=== PATIENT | female | born 1930 | race Caucasian/White ===

== ENCOUNTER 2017-04-23 12:00 | Inpatient (IN) | payer OTHER ==
[~2017-04-23] VITALS: Ht 160 cm; Wt 66.8 kg
[2017-04-23 13:29] LABS: BASOPHIL COUNT 0.1 K/uL (0-0.1); EOSINOPHIL (%) 0 % (0-5); HEMATOCRIT 37.2 % (36.0-46.0); IMMATURE GRANULOCYTE (%) 3.5 % (0.0-0.7); INSTRUMENT ABS NEUTROPHIL CT 23.3 K/uL; LYMPHOCYTE COUNT 1.1 K/uL (1.0-2.8); MCHC 33.3 G/DL (30.0-36.0); MCV 96.1 FL (83-99); MEAN PLAT.VOLUME 8.8 uM^3 (9.5-12.4); MONOCYTE (%) 10.9 % (3-12); MONOCYTE COUNT 3.1 K/uL (0-0.8); NEUTROPHIL (%) 81.6 % (45-76); NEUTROPHIL COUNT 23.3 K/uL (1.8-6.4); PLATELET COUNT 229 K/uL (156-360); RBC DIS.WIDTH-CV 13.4 % (11.8-14.6); RBC DIS.WIDTH-SD 47.2 % (39-53); RED BLOOD COUNT 3.87 M/uL (3.80-5.20); WHITE BLOOD COUNT 28.6 K/uL (4.1-10.2)
[2017-04-23 13:36] LABS: CHLORIDE 99 mEq/L (99-109); POTASSIUM 4.3 mEq/L (3.7-5.4); SODIUM 133 mEq/L (136-147)
[2017-04-23 13:37] LABS: GLUCOSE 106 mg/dL (70-99)
[2017-04-23 13:39] LABS: ANION GAP 9 MEQ/L (2-14)
[2017-04-23 13:41] LABS: GFR ESTIMATE (CALCULATED) > 59 mL/min/
[2017-04-23 13:42] LABS: UREA NITROGEN (BUN) 20 mg/dL (9-23)
[2017-04-23 13:47] LABS: TROP-I INTERPRETATION NEGATIVE; TROPONIN-I < 0.01 ng/mL (0.0-0.30)
[2017-04-23 14:49] LABS: ADD MIUA? YES; BILIRUBIN NEGATIVE; BLOOD SMALL; COLOR YELLOW ((YELLOW)); GLUCOSE (STRIP) 150; KETONES 5; LEUKOCYTES LARGE; NITRITE NEGATIVE; PROTEIN (STRIP) 30; SPECIFIC GRAVITY 1.018 (1.000-1.030)
[2017-04-23 15:00] LABS: BACTERIA RARE /HPF; EPITHELIAL CELLS RARE /HPF; MUCUS TRACE /LPF; RED BLOOD CELLS 0-5 /HPF (0-5); WHITE BLOOD CELLS 40-50 /HPF (0-5)
[2017-04-23] MEDS ORDERED: LISINOPRIL10 MG PO (15:49)
[2017-04-23] MEDS ORDERED: PRAVACHOL10 MG PO (15:50)
[2017-04-23] MEDS ORDERED: METFORMIN HCL500 MG PO (15:50)
[2017-04-23] MEDS ORDERED: ZINC50 M1 PO (15:51)
[2017-04-23] MEDS ORDERED: ECHINACEA400 MG PO (15:51)
[2017-04-23] MEDS ORDERED: CYANOCOBALAM1000 MCG PO (15:52)
[2017-04-23] MEDS ORDERED: ASCORBIC ACID250 MG PO (15:52)
[2017-04-23] MEDS ORDERED: GLUCOSAMINE HC500 MG PO (15:52)
[2017-04-23] MEDS ORDERED: MUCINEX D ER T1 EACH PO (15:53)
[2017-04-23] MEDS ORDERED: ASPIR-LOW81 MG PO (15:53)
[2017-04-23] MEDS ORDERED: CALCIUM600 M1 PO (15:55)
[2017-04-23 20:21] VITALS: BP 127/58
[2017-04-24 00:26] VITALS: BP 121/52
[2017-04-24 04:17] VITALS: BP 126/64
[2017-04-24 07:17] LABS: BASOPHIL COUNT 0.1 K/uL (0-0.1); EOSINOPHIL (%) 0.3 % (0-5); EOSINOPHIL COUNT 0.1 K/uL (0-0.3); HEMATOCRIT 34.4 % (36.0-46.0); IMMATURE GRANULOCYTE (%) 1.4 % (0.0-0.7); IMMATURE GRANULOCYTE COUNT 0.3 K/uL; INSTRUMENT ABS NEUTROPHIL CT 16.6 K/uL; LYMPHOCYTE COUNT 1.3 K/uL (1.0-2.8); MCH 32.5 PG (29.0-34.0); MCHC 33.7 G/DL (30.0-36.0); MCV 96.4 FL (83-99); MEAN PLAT.VOLUME 9.1 uM^3 (9.5-12.4); MONOCYTE (%) 8.2 % (3-12); MONOCYTE COUNT 1.6 K/uL (0-0.8); NEUTROPHIL (%) 83.3 % (45-76); NEUTROPHIL COUNT 16.6 K/uL (1.8-6.4); PLATELET COUNT 239 K/uL (156-360); RBC DIS.WIDTH-CV 13.2 % (11.8-14.6); RBC DIS.WIDTH-SD 47.2 % (39-53); RED BLOOD COUNT 3.57 M/uL (3.80-5.20); WHITE BLOOD COUNT 19.9 K/uL (4.1-10.2)
[2017-04-24 07:38] LABS: ANION GAP 8 MEQ/L (2-14); CHLORIDE 103 MEQ/L (99-109); GFR ESTIMATE (CALCULATED) > 59 mL/min/; GLUCOSE 86 mg/dL (70-99); POTASSIUM 3.9 MEQ/L (3.7-5.4); SAMPLE HEMOLYSIS CHECK 0; SAMPLE ICTERIC CHECK 0; SAMPLE LIPEMIA CHECK 0; SODIUM 138 MEQ/L (136-147); UREA NITROGEN (BUN) 14 mg/dL (9-23)
[2017-04-24 08:07] VITALS: BP 141/65
[2017-04-24 15:37] VITALS: BP 142/72
[2017-04-25] VITALS: BP 159/74
[2017-04-25 04:19] VITALS: BP 145/67
[2017-04-25 07:31] LABS: HEMATOCRIT 35.2 % (36.0-46.0); MCH 31.3 PG (29.0-34.0); MCHC 32.7 G/DL (30.0-36.0); MCV 95.9 FL (83-99); MEAN PLAT.VOLUME 8.5 uM^3 (9.5-12.4); PLATELET COUNT 287 K/uL (156-360); RBC DIS.WIDTH-CV 13.2 % (11.8-14.6); RBC DIS.WIDTH-SD 47.2 % (39-53); RED BLOOD COUNT 3.67 M/uL (3.80-5.20); WHITE BLOOD COUNT 12.3 K/uL (4.1-10.2)
[2017-04-25 07:37] VITALS: BP 153/72
[2017-04-25 08:10] LABS: ANION GAP 7 MEQ/L (2-14); CHLORIDE 103 MEQ/L (99-109); GFR ESTIMATE (CALCULATED) > 59 mL/min/; GLUCOSE 94 mg/dL (70-99); POTASSIUM 4.3 MEQ/L (3.7-5.4); SAMPLE HEMOLYSIS CHECK 0; SAMPLE ICTERIC CHECK 0; SAMPLE LIPEMIA CHECK 0; SODIUM 137 MEQ/L (136-147); UREA NITROGEN (BUN) 11 mg/dL (9-23)
[2017-04-25 11:20] VITALS: BP 131/67
[2017-04-25 16:10] VITALS: BP 156/74
== END 2017-04-25 18:34 | disposition home health service (06) | DRG 690 ==
LOC: EME 12:00 → EDOF 15:42 → 2EAST 15:42 → ENRESERV 15:44 → 2EAST 19:51
PROVIDERS: Emergency Medicine; Family Medicine
DX: N39.0 Urinary tract infection, site not specified (principal); E86.0 Dehydration; E11.9 Type 2 diabetes mellitus without complications; I10 Essential (primary) hypertension; E78.5 Hyperlipidemia, unspecified; M19.90 Unspecified osteoarthritis, unspecified site; Z66 Do not resuscitate
CPT/HCPCS: 71010; 80048; 81003; 84484; 85025; 85027; 87040; 99281; 99285; J0696; J1650; J7030

== ENCOUNTER 2017-04-28 11:57 | Inpatient (IN) | payer OTHER ==
[~2017-04-28] VITALS: Ht 160 cm; Wt 65.4 kg
[2017-04-28 08:00] VITALS: BP 167/72
[~2017-04-28 11:57] MED LIST: ASCORBIC ACID250 MG PO; ASPIR-LOW81 MG PO; CALCIUM600 M1 PO; CYANOCOBALAM1000 MCG PO; ECHINACEA400 MG PO; GLUCOSAMINE HC500 MG PO; LISINOPRIL10 MG PO; METFORMIN HCL500 MG PO; MUCINEX D ER T1 EACH PO; PRAVACHOL10 MG PO; ZINC50 M1 PO
[2017-04-28 15:24] LABS: HEMATOCRIT 39.5 % (36.0-46.0); MCH 31.8 PG (29.0-34.0); MCHC 33.9 G/DL (30.0-36.0); MCV 93.8 FL (83-99); MEAN PLAT.VOLUME 8.2 uM^3 (9.5-12.4); PLATELET COUNT 368 K/uL (156-360); RBC DIS.WIDTH-CV 12.7 % (11.8-14.6); RBC DIS.WIDTH-SD 43.7 % (39-53); RED BLOOD COUNT 4.21 M/uL (3.80-5.20); WHITE BLOOD COUNT 11.3 K/uL (4.1-10.2)
[2017-04-28 15:25] LABS: ADD MIUA? YES; BILIRUBIN NEGATIVE; BLOOD NEGATIVE; COLOR YELLOW ((YELLOW)); GLUCOSE (STRIP) NEGATIVE; KETONES NEGATIVE; LEUKOCYTES TRACE; NITRITE NEGATIVE; PROTEIN (STRIP) NEGATIVE; UROBILINOGEN 0.2 MG/DL (0.2-1.0)
[2017-04-28 15:32] LABS: BACTERIA NONE SEEN /HPF; EPITHELIAL CELLS RARE /HPF; MUCUS TRACE /LPF; RED BLOOD CELLS 0-5 /HPF (0-5); UCUL ADDED? NO; WHITE BLOOD CELLS 0-5 /HPF (0-5)
[2017-04-28 15:47] LABS: CHLORIDE 94 mEq/L (99-109); POTASSIUM 4.5 mEq/L (3.7-5.4); SODIUM 131 mEq/L (136-147)
[2017-04-28 15:49] LABS: GLUCOSE 106 mg/dL (70-99)
[2017-04-28 15:50] LABS: ANION GAP 7 MEQ/L (2-14)
[2017-04-28 15:53] LABS: GFR ESTIMATE (CALCULATED) > 59 mL/min/; UREA NITROGEN (BUN) 13 mg/dL (9-23)
[2017-04-28] MEDS ORDERED: CEFTIN500 MG PO (17:22)
[2017-04-28 20:12] VITALS: BP 124/67
[2017-04-29 00:41] VITALS: BP 127/65
[2017-04-29 04:13] VITALS: BP 124/60
[2017-04-29 07:58] VITALS: BP 150/69
[2017-04-29 12:24] VITALS: BP 125/85
[2017-04-29 16:28] VITALS: BP 128/80
[2017-04-29 20:15] VITALS: BP 159/70
[2017-04-30 00:18] VITALS: BP 139/63
[2017-04-30 08:11] VITALS: BP 139/65
[2017-04-30 15:52] VITALS: BP 119/56
[2017-04-30 22:19] VITALS: BP 143/69
[2017-05-01 07:23] VITALS: BP 140/67
[2017-05-01 11:15] LABS: HEMATOCRIT 32.3 % (36.0-46.0); MCH 30.7 PG (29.0-34.0); MCHC 31.9 G/DL (30.0-36.0); MCV 96.1 FL (83-99); MEAN PLAT.VOLUME 8.3 uM^3 (9.5-12.4); PLATELET COUNT 423 K/uL (156-360); RBC DIS.WIDTH-CV 13.1 % (11.8-14.6); RBC DIS.WIDTH-SD 46.5 % (39-53); WHITE BLOOD COUNT 9.8 K/uL (4.1-10.2)
[2017-05-01 11:17] LABS: RED BLOOD COUNT 3.36 M/uL (3.80-5.20)
[2017-05-01 11:34] LABS: ANION GAP 7 MEQ/L (2-14); CHLORIDE 103 MEQ/L (99-109); GFR ESTIMATE (CALCULATED) > 59 mL/min/; POTASSIUM 4.5 MEQ/L (3.7-5.4); SAMPLE HEMOLYSIS CHECK 0; SAMPLE ICTERIC CHECK 0; SAMPLE LIPEMIA CHECK 0
[2017-05-01 11:35] LABS: GLUCOSE 69 mg/dL (70-99); SODIUM 138 MEQ/L (136-147); UREA NITROGEN (BUN) 28 mg/dL (9-23)
[2017-05-01 16:49] VITALS: BP 142/63
[2017-05-02 00:03] VITALS: BP 119/64
[2017-05-02 07:38] VITALS: BP 126/60
[2017-05-02 09:07] LABS: TROP-I INTERPRETATION NEGATIVE; TROPONIN-I < 0.01 ng/mL (0.0-0.30)
[2017-05-02] MEDS ORDERED: BISAC-EVAC10 MG PR (10:31)
[2017-05-02] MEDS ORDERED: Ocean Nasal 0.65% BOTH NARES (10:32)
[2017-05-02] MEDS ORDERED: SENNA LAX8.6 MG PO (10:32)
[2017-05-02 15:30] LABS: TROP-I INTERPRETATION NEGATIVE; TROPONIN-I < 0.01 ng/mL (0.0-0.30)
== END 2017-05-02 16:16 | DRG 194 ==
LOC: EME 11:57 → 5EAST 17:00 → EDOF 17:00 → ENRESERV 17:10 → 5EAST 17:52 → ENPENDDIS 05-02 → 5EAST 05-02 16:16
PROVIDERS: Emergency Medicine; Family Medicine
DX: J18.1 Lobar pneumonia, unspecified organism (principal); N39.0 Urinary tract infection, site not specified; E86.0 Dehydration; I10 Essential (primary) hypertension; E11.9 Type 2 diabetes mellitus without complications; E78.5 Hyperlipidemia, unspecified; M19.90 Unspecified osteoarthritis, unspecified site; K59.09 Other constipation; Z79.84 Long term (current) use of oral hypoglycemic drugs; Z87.01 Personal history of pneumonia (recurrent)
CPT/HCPCS: 70450; 71010; 71020; 74020; 80048; 81003; 84484; 85027; 87040; 87502; 92610 GN; 93005; 94640; 94640 76; 94760; 94799; 99202; 99281; 99285; J0456; J0696; J1650; J2405; J7030